=== PATIENT | male | born 1995 | race Caucasian/White ===

== ENCOUNTER 2020-10-01 22:12 | Emergency (ER) | payer OTHER, SELFPAY ==
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
[2020-10-01 22:12] VITALS: BP 132/81; PULSE 87; RESP 16; TEMP 36.2; O2SAT 98
[2020-10-02] MEDS: TETANUS,DIPHTHERIA,AC PERTUSSIS ADULT (0.5 ML) BOOSTRIX IM (00:05)
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
[2020-10-02 00:59] VITALS: BP 130/78; PULSE 80; RESP 20; O2SAT 100
== END 2020-10-02 01:00 | disposition home or self-care (01) ==
PROVIDERS: Emergency Provider Emergency Medicine
DX: S00.81XA Abrasion of other part of head, initial encounter (principal); S80.01XA Contusion of right knee, initial encounter; M25.562 Pain in left knee; V49.40XA Driver injured in collision with unspecified motor vehicles in traffic accident, initial encounter
CPT/HCPCS: 73562; 73630; 90471; 90715; 99284

== ENCOUNTER 2021-12-15 09:13 | Emergency (ER) | payer BC, SELFPAY ==
--- NOTE | 2021-12-15 09:25 | ED.GENADULT ---
HPI - General Adult General Chief complaint: Dental/Oral Stated complaint: abscess/mouth History of Present Illness HPI narrative: 26-year-old male patient presents to the [facility] with complaints of swelling to the left face for the past couple of days. Patient states about 2 weeks ago he had 2 teeth pulled on the right side and was given clindamycin but did not complete the entire course of clindamycin. Patient states over the december he had a hamburger and since then has had started having some swelling and overnight is gotten worse. Patient states that it is painful. Denies any fevers, body aches or chills. Patient is supposed to be going into the dentist in a couple of weeks to get another tooth pulled on the left side however his dentist will not call him in an antibiotic since he did not see him. Related Data Allergies Allergy/AdvReac Type Severity Reaction Status Date / Time Penicillins Allergy Unknown Verified 02/13/14 00:17 Review of Systems Review of Systems: CONSTITUTIONAL: Denies fever, chills, or sweats. EYES: Denies visual changes, redness, or discharge. ENT: Denies rhinorrhea, congestion, sore throat, or otalgia. Positive facial swelling to the left side CARDIOVASCULAR: Denies chest pain, palpitations, or edema. RESPIRATORY: Denies cough or dyspnea. GASTROINTESTINAL: Denies abdominal pain, nausea, vomiting, or diarrhea. GENITOURINARY: Denies dysuria or hematuria. SKIN: Denies rash or itching. MUSCULOSKELETAL: Denies back pain, joint pain, or myalgia. NEUROLOGIC: Denies headache, numbness, or weakness. PSYCHIATRIC: Denies anxiety or depression. [facility] Past Medical History Medical History Alcohol use Surgical History Surgical History (Updated 12/15/21 @ 09:29 by OBINNA Hernandez) History of appendectomy History of orthopedic surgery L ankle screws jez; plate on top of foot. Exam Narrative: GENERAL: Well-appearing, well-nourished, and in no acute distress. HEAD: Normocephalic, atraumatic. EYES: PERRLA and EOMI. ENT: Nares clear, no rhinorrhea or epistaxis. Mucous membranes moist. Patient has significant facial swelling to the left side and an obvious abscess to the gum of the left lower oral cavity. There is no open wounds or drainage noted at this time. It is very sensitive to the touch. NECK: Supple. No lymphadenopathy CHEST: Clear to auscultation. No respiratory distress. HEART: Regular rate and rhythm. No murmur heard. Normal peripheral pulses. ABDOMEN: Soft, nontender, nondistended, normal active bowel sounds. EXTREMITIES: Normal range of motion. No edema. SKIN: Warm, dry, no rash. NEURO: No focal deficits. Alert and oriented x3. Course Course Level of Care: Express Care Visit Vital Signs Vital signs: Vital Signs Temperature 36.7 C 12/15/21 09:37 Pulse Rate 69 12/15/21 09:37 Respiratory Rate 20 12/15/21 09:37 Blood Pressure 119/60 12/15/21 09:37 Pulse Oximetry 100 12/15/21 09:37 Oxygen Delivery Room Air 12/15/21 09:37 Temperature 36.7 C 12/15/21 09:37 Pulse Rate 69 12/15/21 09:37 Respiratory Rate 12/15/21 09:37 Blood Pressure 119/60 12/15/21 09:37 Pulse Oximetry 100 12/15/21 09:37 Oxygen Delivery Room Air 12/15/21 09:37 Vital signs reviewed Procedures Abscess I/D oral: Date of Incision: 12/15/21 Time of Incision: 10:10 Side (if applicable): left Sedation/analgesia: none Local Anesthetic: lidocaine 1% Amount of anesthesia used (mL): 3 Technique: incised with #11 blade Irrigation: Yes Packing used?: none I&D Results: Pus Complications: pain Abcess I&D Additional Comments: The procedure was explained and verbal consent is obtained. The wound was anesthetized with 3ml of 1% lidocaine with good anesthesia. Sterile drape and prep are done. The fluctuant center was incised with #11 blade scalpel. A moderate amount of yellow pus was expressed or rem
[2021-12-15 09:37] VITALS: BP 119/60; PULSE 69; RESP 20; TEMP 36.7; O2SAT 100
--- NOTE | 2021-12-15 10:20 | PC.NURSE ---
oral abcsess was drained by provider. no dressing
== END 2021-12-15 10:23 | disposition home or self-care (01) ==
PROVIDERS: Emergency Provider Nurse Practitioner Family
DX: K04.7 Periapical abscess without sinus (principal)
CPT/HCPCS: 41800; 99213; G0463

== ENCOUNTER 2022-11-20 23:21 | Emergency (ER) | payer BC, SELFPAY ==
[2022-11-20 23:25] VITALS: BP 137/72; PULSE 81; RESP 16; TEMP 36.7; O2SAT 100
[2022-11-21 01:42] VITALS: BP 122/76; PULSE 77; RESP 15; O2SAT 100
--- NOTE | 2022-11-21 02:09 | ED.SKABFB ---
HPI - Skin/Abscess/Foreign Bdy General Chief complaint: Skin/Abscess/Foreign Body Stated complaint: nose problem Time Seen by Provider: 11/21/22 01:51 History of Present Illness HPI narrative: Patient is a 27-year-old male here for evaluation of left nasal swelling x1 day. Patient states that he picked a booger out of his nose and he started to have some pain and swelling to the lateral aspect of the nare on the inside. He states his girlfriend picked off the scab formed and since then the symptoms have improved but he still wanted to get checked out. He denies cocaine use, facial trauma, ptosis, and anhidrosis. Related Data Allergies Allergy/AdvReac Type Severity Reaction Status Date / Time Penicillins Allergy Unknown Verified 02/13/14 00:17 Review of Systems Review of Systems: Gen.: Denies fevers or chills Eyes: Denies eye pain or visual change ENT: Reports nasal pain and swelling Respiratory: Denies shortness of breath or cough CV: Denies chest pain or palpitations GI: Denies abdominal pain nausea, emesis or diarrhea denies burning, urgency, frequency or hematuria Musculoskeletal: Denies back pain or muscle pain Neuro: Denies numbness, tingling, weakness or focal weakness Skin: Denies rash Except as documented, all other systems reviewed and negative PMFSH Past Medical History Medical History Alcohol use Surgical History Surgical History History of appendectomy History of orthopedic surgery L ankle screws jez; plate on top of foot. Exam Narrative: APPEARANCE: Well appearing, no pain in distress, well-nourished. Head: Normocephalic and atraumatic. EYES: Scant erythema around the left eyelid NOSE: Septal deviation to the right, patient states is chronic. There is some erythema to the left nare and left nose bridge that is warm to touch, nontender to palpation. No septal hematoma noted. EARS: External ear normal in appearance THROAT: Oropharynx is clear. Mucous membranes are moist. NECK: Supple. No adenopathy, no masses. RESPIRATORY: Airway patent, respirations nonlabored. Clear to auscultation bilaterally, no rales, rhonchi, wheezing. CARDIOVASCULAR: Regular rate and rhythm without murmurs, rubs, or gallops. ABDOMINAL: Normoactive bowel sounds. Soft, nontender, nondistended. No rebound tenderness or guarding. MUSCULOSKELETAL: Extremities are warm and well-perfused. Moves all extremities well. No edema. NEURO: Normal speech. No focal neurologic deficits. SKIN: Skin is warm and dry. No rashes. PSYCHIATRIC: Normal affect/mood. Course Vital Signs Vital signs: Vital Signs Temperature 98.1 F 11/20/22 23:25 Pulse Rate 81 11/20/22 23:25 Respiratory Rate 16 11/20/22 23:25 Blood Pressure 137/72 11/20/22 23:25 Pulse Oximetry 100 11/20/22 23:25 Oxygen Delivery Room Air 11/20/22 23:25 Temperature 98.1 F 11/20/22 23:25 Pulse Rate 77 11/21/22 01:42 Respiratory Rate 15 11/21/22 01:42 Blood Pressure 122/76 11/21/22 01:42 Pulse Oximetry 100 11/21/22 01:42 Oxygen Delivery Room Air 11/20/22 23:25 MDM - Skin/Abscess/Foreign Bdy MDM Narrative Medical decision making narrative: 27-year-old male here for evaluation of what appears to be a left nasal cellulitis after picking his nose yesterday. No evidence of septal hematoma on examination. Patient is well-appearing with normal vital signs, denies systemic symptoms. Will treat for cellulitis and provided with ENT follow-up. We discussed return precautions and he voiced understanding. Discharge Plan Discharge Clinical Impression: Cellulitis of nose Patient Disposition: Home, Self-Care Condition: Stable Instructions: Antibiotic Form, Cellulitis (ED) Additional Instructions: I am treating you for infection with antibiotics. Please follow-up with the ear nose and throat doctor next week if your symptoms continue. Return to the emergen
== END 2022-11-21 02:22 | disposition home or self-care (01) ==
LOC: ANHED 11-21 02:03
PROVIDERS: Emergency Provider Physician Assistant
DX: J34.0 Abscess, furuncle and carbuncle of nose (principal)
CPT/HCPCS: 99283

== ENCOUNTER 2023-04-17 02:13 | Emergency (ER) | payer SELFPAY ==
--- NOTE | ~2023-04-17 | XR_ITS ---
Portable chest x-ray Comparison: None Clinical History: Chest pain Findings: Lungs are clear, without focal consolidation or pleural effusion. Cardiomediastinal silho uette is unremarkable. Bones and soft tissues are unremarkable. Impression: Normal chest. Reviewed, dictated and finalized at location M. MOTION ANALYST Impression: Normal chest.
[2023-04-17 02:16] VITALS: BP 130/69; PULSE 67; RESP 18; TEMP 36.8; O2SAT 100
--- NOTE | 2023-04-17 02:43 | ECG_ITS ---
Measurements Intervals [place] Rate: 69 P: 41 ND: 154 QRS: -21 QRSD: 110 T: 8 QT: 372 QTc: 401 Interpretive Statements SINUS RHYTHM NONSPECIFIC ST ELEVATION IN ANTEROLATERAL LEADS BORDERLINE ECG NO PREVIOUS ECG AVAILABLE FOR COMPARISON Electronically Signed On 04-17-2023 11:31:52 [employer] BR[employer]GE INSPECTOR by Gustavo Quiñones D.O.
--- NOTE | 2023-04-17 02:46 | ED.GENADULT ---
HPI - General Adult General Chief complaint: Unspecified Stated complaint: i have been feeling weird Time Seen by Provider: 04/17/23 02:34 History of Present Illness HPI narrative: Patient 27-year-old gentleman who presents the emergency department patient is currently rating his back 9. Patient reports that for some time he has been having episodes where you have esophageal strange over his entire body patient states he is told that he had vertigo for months and states he has not had any rotational types of cancer patient also reports that he has been having episodes where he has chest discomfort and has palpitations patient states his had a mild episode and decided to come to the emergency department to be evaluated. Related Data Allergies Allergy/AdvReac Type Severity Reaction Status Date / Time Penicillins Allergy Unknown Verified 02/13/14 00:17 Review of Systems Review of Systems: A 10 system review of systems was completed on the patient and is negative except for what is stated in the HPI. Nursing and ancillary documentation was reviewed. [facility] Past Medical History Medical History Alcohol use Surgical History Surgical History History of appendectomy History of orthopedic surgery L ankle screws jez; plate on top of foot. Exam Narrative: GENERAL: Well-appearing, well-nourished, and in no acute distress. HEAD: Normocephalic, atraumatic. EYES: PERRLA and EOMI. ENT: Nares clear, no rhinorrhea or epistaxis. Mucous membranes moist. NECK: Supple. CHEST: Clear to auscultation. No respiratory distress. HEART: Regular rate and rhythm. No murmur heard. Normal peripheral pulses. ABDOMEN: Soft, nontender, nondistended, normal active bowel sounds. EXTREMITIES: Normal range of motion. No edema. SKIN: Warm, dry, no rash. NEURO: No focal deficits. Alert and oriented x3. PSYCH: Normal mood and affect. Course Vital Signs Vital signs: Vital Signs Temperature 36.8 C 04/17/23 02:16 Pulse Rate 67 04/17/23 02:16 Respiratory Rate 18 04/17/23 02:16 Blood Pressure 130/69 04/17/23 02:16 Pulse Oximetry 100 04/17/23 02:16 Oxygen Delivery Room Air 04/17/23 02:16 Temperature 36.8 C 04/17/23 02:16 Pulse Rate 67 04/17/23 02:16 Respiratory Rate 18 04/17/23 02:16 Blood Pressure 130/69 04/17/23 02:16 Pulse Oximetry 100 04/17/23 02:16 Oxygen Delivery Room Air 04/17/23 02:16 Medical Decision Making MDM Narrative Medical decision making narrative: Differential diagnosis includes ACS, electrolyte abnormality, pneumothorax, pneumonia, pancreatitis Laboratory studies returned the patient showed a normal CBC was within normal limits troponin was negative Chest x-ray showed no pneumothorax or widened mediastinum EKG showed sinus rhythm rate of [address] elevation or ST depression Vital Signs Vital Signs: Vital Signs Temperature 36.8 C 04/17/23 02:16 Pulse Rate 67 04/17/23 02:16 Respiratory Rate 18 04/17/23 02:16 Blood Pressure 130/69 04/17/23 02:16 Pulse Oximetry 100 04/17/23 02:16 Oxygen Delivery Room Air 04/17/23 02:16 Temperature 36.8 C 04/17/23 02:16 Pulse Rate 67 04/17/23 02:16 Respiratory Rate 18 04/17/23 02:16 Blood Pressure 130/69 04/17/23 02:16 Pulse Oximetry 100 04/17/23 02:16 Oxygen Delivery Room Air 04/17/23 02:16 Lab Data 04/17/23 02:51 04/17/23 02:51 Labs: Lab Results 04/17/23 Range/Units 02:51 WBC 8.4 (4.5-10.0) K/mm3 RBC 5.31 (4.6-6.20) M/mm3 Hgb 15.6 (14.0-18.0) g/dL Hct 46.1 (42.0-52.0) % MCV 86.8 (80-100) fl MCH 29.4 (26-34) pg MCHC 33.8 (32-36) g/dl RDW 12.4 (11.5-14.5) % Plt Count 250 (150-375) k/mm3 MPV 11.0 H (7.4-10.4) fl Immature Gran % (Auto) 0.2 (0-0.5) % Neut % (Auto) 58.8 (45.5-73.1) % Lymph % (Auto) 30.0 (18.3-44.2) % [place] % (Auto) 8.1
[2023-04-17 03:21] LABS: Basophils Absolute Auto 0.1 K/mm3 (0.0-0.1); Basophils Percent Auto 0.6 % (0.2-1.2); Eosinophils Absolute Auto 0.2 K/mm3 (0-0.3); Eosinophils Percent Auto 2.3 % (0-4.4); Hematocrit 46.1 % (42.0-52.0); Hemoglobin 15.6 g/dL (14.0-18.0); Immature Granulocyte Absolute 0.02 K/mm3 (0.00-0.031); Immature Granulocyte Percent A 0.2 % (0-0.5); Lymphocytes Absolute Auto 2.53 K/mm3 (0.9-3.2); Mean Corpuscular HGB Conc 33.8 g/dl (32-36); Mean Corpuscular Hemoglobin 29.4 pg (26-34); Mean Corpuscular Volume 86.8 fl (80-100); Monocytes Absolute Auto 0.7 K/mm3 (0.1-0.6); Monocytes Percent Auto 8.1 % (2.6-8.5); Neutrophils Percent Auto 58.8 % (45.5-73.1); Platelet Count Result 250 k/mm3 (150-375); Red Blood Count 5.31 M/mm3 (4.6-6.20); Red Cell Distribution Width 12.4 % (11.5-14.5); White Blood Count 8.4 K/mm3 (4.5-10.0)
[2023-04-17 03:39] LABS: Prothrombin Time 13.4 Seconds (11.1-14.7)
[2023-04-17 03:55] LABS: Alanine Aminotransferase 56 U/L (6-50); Albumin Level 4.6 g/dL (3.5-5.1); Alkaline Phosphatase 83 U/L (38-126); Anion Gap 6 mmol/L (8-16); Aspartate Amino Transferase 41 U/L (17-59); Bilirubin,Total 0.6 mg/dL (0.2-1.3); Blood Urea Nitrogen 11 mg/dL (9-20); Calcium 9.9 mg/dL (8.4-10.2); Carbon Dioxide 32 mmol/L (22-30); Chloride 100 mmol/L (98-107); Estimated CRCL calculation 117 ml/min; Estimated Glomerular Filt Rate > 60; Glucose 104 mg/dL (65-110); Lipase 101 U/L (23-300); Magnesium 2.1 mg/dL (1.6-2.3); Potassium 3.5 mmol/L (3.4-5.0); Sodium 138 mmol/L (137-145)
[2023-04-17 03:56] LABS: Troponin I < 0.012 ng/mL (0.000-0.034)
[2023-04-17 04:17] VITALS: BP 107/67; PULSE 60; RESP 16; O2SAT 99
[2023-04-17 04:26] VITALS: BP 107/67; PULSE 64; RESP 18; O2SAT 98
== END 2023-04-17 04:27 | disposition home or self-care (01) ==
PROVIDERS: Emergency Provider Emergency Medicine
DX: R07.89 Other chest pain (principal); R94.31 Abnormal electrocardiogram [ECG] [EKG]
CPT/HCPCS: 36415; 71045; 80053; 83690; 83735; 84484; 85025; 85610; 85730; 93005; 99284